=== PATIENT | male | born 1985 | race Caucasian/White ===

== ENCOUNTER 2022-12-23 16:56 | Emergency (ER) | payer MEDICAID ==
[~2022-12-23] VITALS: Ht 157.5 cm; Wt 65.8 kg
[2022-12-23 17:40] VITALS: BP_SYST 126; PULSE 67; RESP 16; TEMP 97.7; O2SAT 99
[2022-12-23 17:52] VITALS: BP_SYST 129; PULSE 88; RESP 15; TEMP 97.5; O2SAT 99
== END 2022-12-23 17:55 ==
LOC: SED 16:56
DX: Z02.89 Encounter for other administrative examinations (principal); M54.50 Low back pain, unspecified; Z79.899 Other long term (current) drug therapy
CPT/HCPCS: 72170-TC; 99283